=== PATIENT | female | born 1990 | race Hispanic/Latino ===

== ENCOUNTER 2018-07-22 19:41 | Outpatient (CLI) | payer BC, MEDICAID ==
[2018-07-22] MEDS ORDERED: LACTATED RINGERS 1,000 ML IV ONE (20:42)
[2018-07-22 21:11] LABS: Bilirubin,Urine NEG (Negative); Blood,Urine MOD (Negative); Color,Urine Yellow (Yellow); Mucus,Urine FEW /HPF; Protein,Urine <15 mg/dL mg/dL (Negative); Urobilinogen,Urine < 2.0 mg/dL (<2.0); WBC,Urine < 1.0 /HPF (0.0-6.0)
[2018-07-22 21:55] VITALS: BP 98/58
--- NOTE | 2018-07-22 22:39 | Event Note ---
Date: 07/22/18 Patient monitored without ctx, FHT reassuring. No evidence of vaginal bleeding. u/s done - no evidence of previa, CL 3.4cms. Spec exam done; normal white vaginal discharge noted. abd soft non-tender. Pt reports active FM. pt reassured, will send urine culture and f/u later this week. All questions addressed.
--- NOTE | 2018-07-22 22:59 | Ultrasound Report ---
FINAL REPORT PROCEDURE: US OB LIMITED TECHNIQUE: Real-time limited sonographic examination was performed for evaluation of placenta and ce rvical length for each fetus with image documentation (1 or more fetuses). CPT 41696 HISTORY: labor COMPARISON: No prior studies are available for comparison. FINDINGS: There is single intrauterine gestation with cephalic presentation. heart rate is 147 beats per minute. Cervical length is 3.4 centimeters. Internal os is closed. Placenta is anterior with grade 1 maturity. IMPRESSION: Placenta is anterior Cervical length is 3.4 centimeters
== END 2018-07-22 22:34 | disposition home or self-care (01) ==
LOC: TRG 19:41
PROVIDERS: ATTEND Obstetrics & Gynecology
DX: O47.03 False labor before 37 completed weeks of gestation, third trimester (principal); Z3A.29 29 weeks gestation of pregnancy; Z88.0 Allergy status to penicillin; Z88.1 Allergy status to other antibiotic agents
CPT/HCPCS: 59025; 76815; 81001

== ENCOUNTER 2018-10-08 06:08 | Inpatient (IN) | payer BC, MEDICAID ==
--- NOTE | 2018-10-08 07:25 | History and Physical Report ---
History of Present Illness Date of examination: 10/08/18 Date of admission: 10/08/18 07:10 History of present illness: Menstrual History Regularity: regular Menses every: 28 days Duration: 5 LMP: 12/19/2017 LMP reliability: definite LMP character: normal test type: urine test Date: 05/05/2018 BC at conception: none Planned ? yes EDC Calculations LMP: 09/25/2018 EDC Confirmation: 09/25/2018 Past History : 2 Term Births: 1 Premature Births: 0 Living Children: 1 Para: 1 Aborta: 0 Elect. Ab: 0 Spont. 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 of genital herpes: no Partner hx. of genital herpes: no Rash, Viral, or Febrile illness since last LMP? no Varicella/Chicken Pox Status: Immunized Genetic History Congenital Heart Defect: Mom: no Dad: no Megan Disease: Mom: no Dad: no Thalassemia Mom: no Dad: no Neural Tube Defect Mom: no Dad: no Down's Syndrome Mom: no Dad: no Manish-Sachs Mom: no Dad: no Sickle Cell Disease/Trait Mom: no Dad: no Hemophilia Mom: no Dad: no Muscular Dystrophy Mom: no Dad: no Cystic Fibrosis Mom: no Dad: no Stanford Chorea Mom: no Dad: no Mental Retardation Mom: no Dad: no Fragile X Mom: no Dad: no Other Genetic/Chromosomal Disorder Mom: no Dad: no Child w/other defect Mom: no Dad: no Enviromental Exposures Xray Exposure: no Medication, drug, or alcohol use since LMP: no Chemical/Other Exposure: no Exposure to Cat Liter: no Hx of Parvovirus (Fifth Disease): no Occupational Exposure to Children: none Past History Past Medical History: other (see HPI) Past Surgical History: other (see HPI) 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) Family/Genetic History: other (see HPI) Social history: other (see HPI) - Obstetrical History : 2 Para: 1 Medications and Allergies Allergies Allergy/AdvReac Type Severity Reaction Status Date / Time amoxicillin Allergy Rash Verified 07/22/18 20:42 ampicillin Allergy Rash Verified 07/22/18 20:42 Cephalosporins Allergy Rash Verified 07/22/18 20:41 erythromycin base Allergy Rash Verified 07/22/18 20:42 Penicillins Allergy Rash Verified 07/22/18 20:41 Home Medications Medication Instructions Recorded Confirmed Last Taken Type Levothyroxine [Synthroid] 112 mcg PO QAM 07/22/18 10/08/18 10/07/18 History Active Meds: Active Medications Ephedrine Sulfate (Ephedrine Sulfate) 10 mg IV Q2M PRN PRN Reason: Hypotension Lactated Ringer's (Lactated Ringers) 1,000 mls @ 125 mls/hr IV DIRECT NORBERTO Oxytocin/Sodium Chloride (Pitocin/Ns 20 Unit/1000ml Drip) 20 units in 1,000 mls @ 125 mls/hr IV DIRECT NORBERTO Lidocaine (Xylocaine 2%) 20 ml INFILTRATI ONCE NR Stop: 10/09/18 07:29 Mineral Oil (Mineral Oil) 30 ml PO QHS PRN PRN Reason: Constipation Terbutaline Sulfate (Brethine) 0.25 mg SUB-Q ONCE PRN PRN Reason: Hyperstimulation/Hypertonicity Terbutaline Sulfate (Brethine) 0.25 mg IVP ONCE PRN PRN Reason: Hyperstimulation/Hypertonicity Review of Systems All systems: negative Genitourinary: leakage of fluid (clear at 0500, continues to leak ), contractions (occasional, mild "not painful") - Vital Signs Vital signs: Vital Signs Pulse BP 67 134/85 10/08/18 06:37 10/08/18 06:37 Temp Pulse Resp BP Pulse Ox 98.0 F 83 14 125/83 10/08/18 07:17 10/08/18 07:16 10/08/18 07:17 10/08/18 07:16 - Physical Exam Breasts: Positive: normal Cardiovascular: Regular rate, Normal S1, Normal S2 Lungs: Positive: Clear to auscultation Abdomen: Positive: normal appearance, soft, normal bowel sounds. Negative: distention, tenderness Genitourinary (Female): Positive: normal external genitalia, normal perenium Vulva: both: normal Vagina: Positive: normal moisture. Negative: discharge Cervix: Negative: lesion, discharge Uterus: Positive: normal size, normal contour Adnexa: both: normal Anus/Rectum: Positive: normal perianal skin, heme negative. Negative: rectal mass, hemorrhoids Extremities: Positive: normal Deep Tendon Reflex Grade: Normal +2 - Obstetrical FHR: auscultation normal, category 1 Uterine Contraction Monitor Mode: External Uterine Contraction Pattern: Irregular Uterine Tone Measurement Phase: Contraction Uterine Contraction Intensity: Mild Results Result Diagrams: 10/08/18 Unknown All other labs normal. Assessment and Plan 28 y.o. IUP at 40w 2d presents to triage c/o leaking of fluid. 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 SVE per RN /-2. Patient reports being comfortable at this time, declines epidural at this time. Reports +FM, mild contractions, continued leaking of clear fluid from vagina. Category 1 tracing on monitor. Irregular contractions noted on TOCO, palpating mild. Orders for pitocin administration placed in EMR. RN notified. Patient may have epidural when desires. GBS negative. Anticipate .
[2018-10-08] MEDS ORDERED: BRETHINE SUB-Q PRN (07:30)
[2018-10-08] MEDS ORDERED: BRETHINE IVP PRN (07:30)
[2018-10-08] MEDS ORDERED: XYLOCAINE 2% INFILTRATI NR (07:30)
[2018-10-08] MEDS ORDERED: MINERAL OIL PO PRN (07:30)
[2018-10-08 07:57] LABS: Hemoglobin 11.6 gm/dl (10.1-14.3); Mean Corpuscular HGB Conc 34 % (30-34); Mean Corpuscular Volume 87 fl (79-97); Platelet Count 145 K/mm3 (140-440); Red Cell Distribution Width 14.1 % (13.2-15.2)
[2018-10-08] MEDS ORDERED: PITOCin/NS 20 UNIT/1000ML DRIP 20 UNITS/1,000 ML BAG IV SCH (08:00)
[2018-10-08] MEDS ORDERED: PITOCin/NS 30 UNIT/500ML 30 UNITS/500 ML BAG IV SCH (08:00)
[2018-10-08] MEDS: LACTATED RINGERS 1,000 ML IV SCH ×3 (09:38→15:35)
[2018-10-08] MEDS ORDERED: fentaNYL-BUPIV 2 MCG/ML-0.125% 200 MCG/100 ML BAG EPIDURAL ONE (11:11)
[2018-10-08] MEDS ORDERED: NARCAN 2 MG/2 ML IV PRN (12:20)
--- NOTE | 2018-10-08 12:24 | Anesthesia Day of Surgery ---
Anesthesia Day of Surgery - Day of Surgery Patient Examined: Yes Patient H&P Reviewed: Yes Patient is NPO: Yes Beta Blockers: No Cardiac Clearance: No Pulmonary Clearance: No Depe's Test: N/A
--- NOTE | 2018-10-08 12:24 | Anesthesia Consultation ---
Anesthesia Consult and Med Hx Date of service: 10/08/18 - Airway Anesthetic Teeth Evaluation: Good ROM Head & Neck: Adequate Mental/Hyoid Distance: Adequate Mallampati Class: Class II Intubation Access Assessment: Probably Good - Pulmonary Exam CTA: Yes - Cardiac Exam Cardiac Exam: RRR - Pre-Operative Health Status ASA Pre-Surgery Classification: ASA2 Proposed Anesthetic Plan: Epidural - Pulmonary Hx Smoking: No Hx Asthma: No Hx Respiratory Symptoms: No SOB: No COPD: No Home Oxygen Therapy: No Hx Pneumonia: No Hx Sleep Apnea: No - Cardiovascular System Hx Hypertension: No Hx Coronary Artery Disease: No Hx Heart Attack/AMI: No Hx Angina: No Hx Percutaneous Transluminal Coronary Angioplasty (PTCA): No Hx Cardia Arrhythmia: No Hx Pacemaker: No Hx Internal Defibrillator: No Hx Valvular Heart Disease: No Hx Heart Murmur: No Hx Peripheral Vascular Disease: No - Central Nervous System Hx Neuromuscular Disorder: No Hx Seizures: No CVA: No Hx Back Pain: No Hx Psychiatric Problems: Yes (anxiety) - Gastrointestinal Hx Ulcer: No Hx Gastroesophageal Reflux Disease: Yes - Endocrine Hx Renal Disease: No Hx End Stage Renal Disease: No Hx Cirrhosis: No Hx Liver Disease: No Hx Insulin Dependent Diabetes: No Hx Non-Insulin Dependent Diabetes: No Hx Thyroid Disease: No Hx Hypothyroidism: Yes (levothyroxine) Hx Hyperthyroidism: No - Hematic Hx Anemia: No Hx Sickle Cell Disease: No - Other Systems Hx Alcohol Use: No Hx Substance Use: No Hx Cancer: No Hx Obesity: No
--- NOTE | 2018-10-08 12:25 | Post Anesthesia Evaluation ---
- Post Anesthesia Evaluation Patient Participated: Yes Airway Patent: Yes Stable Respiratory Function: Yes Nausea/Vomiting: No Temp > 96.8F: Yes Pain Manageable: Yes Adequeate Hydration: Yes Anesthesia Complications: No Block Receding Appropriately: Yes Patient on Ventilator: No
[2018-10-08] MEDS ORDERED: fentaNYL-BUPIV 2 MCG/ML-0.125% 200 MCG/100 ML BAG EPIDURAL SCH (13:00)
--- NOTE | 2018-10-08 13:02 | Event Note ---
Date: 10/08/18 Patient comfortable s/p epidural placement. SVE /-2, continued leaking of clear fluid from vagina. Category 1 tracing at this time. Irregular contractions on TOCO, palpating mild, pitocin currently at 4mu/min. RN aware of examination, will increase pitocin at this time. VSSAF. Continue to monitor and anticipate .
--- NOTE | 2018-10-08 17:03 | Event Note ---
Date: 10/08/18 Called by RN to assess patient, reports rapid change from 5-8cm, late decelerations, pitocin off. Upon entering room, patient in left lateral posit ion, pitocin is off, LR bolus infusing, O2 via NRB facemask. FHTs recovered, category 1 at this time. SVE remains 8/90/-1. Patient reports intermittent rectal pressure with contractions. Position adjusted to tailor sitting. Anticipate .
--- NOTE | 2018-10-08 18:45 | Procedure Note ---
OB Delivery Note - Delivery Date of Delivery: 10/08/18 Manager Human Capital: RACHEL BECKMAN Estimated blood loss: 200cc - Vaginal Delivery presentation: vertex Delivery position: OA Delivery induction: none Delivery augmentation: pitocin Delivery monitor: external uterine, internal FHT Route of delivery: Delivery placenta: spontaneous (complete intact) Episiotomy: none Delivery laceration: none Anesthesia: epidural Delivery comments: viable male delivered over intact perineum. Infant placed skin to skin on mothers abdomen. Cord clamped x2 and cut by FOC. Vigorous cry produced with drying and tactile stimulation. Placenta delivered complete and intact. pitocin to iv. Fundus is firm, ML. Hemostasis achieved. EBL 200. apgars 8/9, wt 3380 grams. and mother remain in LDR stable. Mother reports she is comfortable. VSS - A at 1 minute: 8 at 5 minutes: 9 Gender: Male (3350 grams)
[2018-10-08] MEDS ORDERED: BENADRYL PO PRN (23:33)
[2018-10-08] MEDS ORDERED: DULCOLAX PR PRN (23:33)
[2018-10-08] MEDS ORDERED: ZOFRAN IV PRN (23:33)
[2018-10-08] MEDS ORDERED: SODIUM CHLORIDE FLUSH SYRINGE 10 ML IV PRN (23:33)
[2018-10-08] MEDS ORDERED: MILK OF MAGNESIA PO PRN (23:33)
[2018-10-08] MEDS ORDERED: TYLENOL PO PRN (23:33)
[2018-10-08] MEDS ORDERED: PHENERGAN PO PRN (23:33)
[2018-10-08] MEDS ORDERED: TUCKS PAD TP PRN (23:33)
[2018-10-08] MEDS ORDERED: LANSINOH TP PRN (23:33)
[2018-10-08] MEDS: IBUPROFEN PO SCH (23:35)
[2018-10-09] MEDS: IBUPROFEN PO SCH ×2 (06:38→12:02)
[2018-10-09 07:49] LABS: Hematocrit 32.6 % (30.3-42.9); Hemoglobin 11.1 gm/dl (10.1-14.3)
[2018-10-09] MEDS ORDERED: SYNTHROID PO SCH (09:00)
--- NOTE | 2018-10-09 10:09 | Discharge Summary ---
Providers - Providers Date of Admission: 10/08/18 07:10 Date of discharge: 10/09/18 Attending physician: KIMBERLEY GREENBERG Primary care physician: KIMBERLEY GREENBERG Hospitalization Reason for admission: active labor, IUP at term Delivery: Episiotomy: none Laceration: none Incision: normal Other procedures: none complications: none Discharge diagnosis: IUP at term delivered baby: male Hospital course: Uncomplicated vaginal delivery. Pt resting quietly. Family at bedside. NB in crib. VSS. FF below umb. Lochia small. Perineum intact. H/H stable. Doing well s/p vaginal delivery. P: D/C today with instructions. RTO 1 wk for circ and 4 wk for PPC. Rx emla. Condition at discharge: Good Disposition: DC- TO HOME OR SELFCARE - Discharge Diagnoses (1) Normal spontaneous vaginal delivery Status: Acute Comment: RTO 4wks PPC Plan - Discharge Medications Prescriptions: Lidocain2.5%/Prilocai2.5% [Emla] 5 gm TP PRN #1 tube - Provider Discharge Summary Activity: routine, no sex for 6 weeks, no heavy lifting 4 weeks, no strenuous exercise Diet: routine Instructions: routine Additional instructions: [] Smoking cessation referral if applicable(refer to patient education folder for contact #) [] Refer to [facility] Booklet Call your doctor immediately for: * Fever > 100.5 * Heavy vaginal bleeding ( >1 pad per hour) * Severe persistent headache * Shortness of breath * Reddened, hot, painful area to leg or breast * Drainage or odor from incision. * Keep incision clean and dry at all times and follow doctor's instructions regarding bathing/showering - Follow up plan Follow up: KIMBERLEY GREENBERG MD [Primary Care Provider] - 7 Days (Congradulations! Please call [phone] to schedule your son's circumsion in one week and your in four weeks. Please bring Emla cream to his appointment. Do NOT use at home. Motrin/Ibuprofen for pain or cramping. Call with concerns. )
[2018-10-10 03:21] VITALS: BP 119/78
== END 2018-10-09 22:00 | disposition home or self-care (01) | DRG 807 ==
LOC: TRG 06:08 → LD 07:10 → OB 20:49
PROVIDERS: ADMIT Obstetrics & Gynecology; ATTEND Obstetrics & Gynecology
PROC: 10E0XZZ Delivery of Products of Conception, External Approach (ICD-10-PCS; principal; 2018-10-08)
PROC: 3E0R3BZ Introduction of Anesthetic Agent into Spinal Canal, Percutaneous Approach (ICD-10-PCS; 2018-10-08)
PROC: 00HU33Z Insertion of Infusion Device into Spinal Canal, Percutaneous Approach (ICD-10-PCS; 2018-10-08)
DX: O99.62 Diseases of the digestive system complicating childbirth (principal); Z37.0 Single live birth; O76 Abnormality in fetal heart rate and rhythm complicating labor and delivery; K21.9 Gastro-esophageal reflux disease without esophagitis; F41.9 Anxiety disorder, unspecified; E03.9 Hypothyroidism, unspecified; O99.284 Endocrine, nutritional and metabolic diseases complicating childbirth; O99.344 Other mental disorders complicating childbirth; Z3A.40 40 weeks gestation of pregnancy; Z82.49 Family history of ischemic heart disease and other diseases of the circulatory system; Z88.1 Allergy status to other antibiotic agents; Z88.0 Allergy status to penicillin
CPT/HCPCS: 36415; 85014; 85018; 85027; 86592; 86850; 86900; 86901; G0378; A6250; J2590; J7120